=== PATIENT | female | born 1990 | race Caucasian/White ===

== ENCOUNTER 2021-03-25 16:01 | Observation (INO) | payer SELFPAY ==
[2021-03-25] VITALS (9 sets, daily range): BP systolic 103–113; BP diastolic 56–70; PULSE 86–123; TEMP 97.9–98.4
[~2021-03-25] VITALS: Ht 154.9 cm; Wt 52.3 kg
--- NOTE | 2021-03-25 13:50 | NUR ---
Pt arrives via stretcher from [facility] via EMS. States lower abdominal pain that began on 03/24/21. Pt was seen at [facility] and diagnosed with an ectopic . Changed into a clean gown. Type and screen obtained. NS infusing in 18g RAC. Admission assessmennt completed. Consents signed. Lacey Fernandes CRNA and Dr. Elizabeth at bedside. Discusses POC, and etiology of . Pt and spouse verbalize understanding and agree to POC.
--- NOTE | 2021-03-25 16:35 | NUR ---
Pt arrives to unit from PACU via bed. NC at 2L. Incision sites noted CDI. Pt alert x oriented x3. VSS. Updated on POC. Bed locked in low position. Call light within reach. SCDs on.
--- NOTE | 2021-03-25 18:40 | NUR ---
1840 ZOFRAN 4MG IVP FOR NAUSEA WITH GOOD RESULTS.
--- NOTE | 2021-03-25 19:30 | NUR ---
0 SAT ON SIDE OF BED. BECAME VERY DIZZY WHEN SITTING UP. LAY DOWN AND HOB DOWN. FEELING BETTER.
--- NOTE | 2021-03-25 21:00 | NUR ---
2100 UP TO BR WITH ASSIST AND VOIDED 100CC. VAG BLEEDING MINIMAL. MELISSA WELL. RETURNED TO BED. EMESIS 100CC. FEELING BETTER 2124 PERCOCET X1 PO WITH WATER AND CRACKERS TAKEN
[2021-03-26] VITALS: BP 96/57; PULSE 117; TEMP 98
--- NOTE | 2021-03-26 00:01 | NUR ---
0001 IV INFUSES AND TO INT. UP TO BR WITH ASSIST. SL DIZZY ON FIRST SITTING UP. MELISSA AMB WELL. RETURNED TO BED. NO NAUSEA AT THIS TIME.
[2021-03-26 04:00] VITALS: BP 91/58; PULSE 91; TEMP 98.3
[2021-03-26 08:00] VITALS: BP 96/56; PULSE 98; TEMP 98.4
[2021-03-26] MEDS ORDERED: MOTRIN 800800 MG/TAB PO (08:07)
[2021-03-26] MEDS ORDERED: PERCOCET 325 MG1 TA2 PO (08:07)
--- NOTE | 2021-03-26 10:17 | NUR ---
Initial visit; Patient and her thanked Energy Conservation Engineer for offering encouragement and God's blessings. Energy Conservation Engineer thanked family for choosing [facility].
[2021-03-26 12:19] VITALS: BP 92/52; PULSE 88; TEMP 98.4
--- NOTE | 2021-03-26 15:20 | NUR ---
1520- Pt ambulates in hallway independently with standby assist. Pt denies dizziness or light headedness. Pt verablizes being ready to go home. INT dc'd. to call friend that will give them a ride home.
== END 2021-03-26 17:20 | disposition home or self-care (01) ==
LOC: LDRO 16:01 → OB 16:02 → LDRO 03-26 09:22 → OB 03-26 09:23
PROVIDERS: ADMIT Obstetrics & Gynecology
DX: O00.101 Right tubal pregnancy without intrauterine pregnancy (principal); K66.1 Hemoperitoneum
CPT/HCPCS: OP; G0378; J1100; J1170; J1885; J2175; J2405; J2704; J2710; J2791; J3010; J7120

== ENCOUNTER 2021-11-09 09:36 | Emergency (ER) | payer SELFPAY ==
[~2021-11-09] VITALS: Ht 152.4 cm; Wt 54.5 kg
[~2021-11-09 09:36] MED LIST: MOTRIN 800800 MG/TAB PO; PERCOCET 325 MG1 TA2 PO
[2021-11-09 09:53] VITALS: TEMP 98.1
[2021-11-09 10:18] LABS: BASO % 0.1 % (0.0-2.0); EOS # 0.1 K/mm3 (0.0-0.7); EOS % 0.8 % (0.0-4.0); GRAN # 5.5 K/mm3 (1.4-6.5); GRAN % 72.1 % (42.2-75.2); LYMPH # 1.5 K/mm3 (1.2-3.4); LYMPH % 19.7 % (20.0-51.0); MEAN CELL VOLUME 90 fl (80.0-100.0); MEAN CORPUSCULAR HEMOGLOBIN 30 pg (27-31); MEAN CORPUSCULAR HGB CONC 33 g/dl (33.0-37.0); MEAN PLATELET VOLUME 9.8 fl (7.4-10.4); MONO # 0.5 K/mm3 (0.1-0.6); MONO % 6.8 % (1.7-9.3); PLATELET COUNT 191 K/mm3 (130-400); RED BLOOD COUNT 3.97 M/mm3 (4.10-5.30); REDCELL DISTRIBUTION WIDTH-CV 13.2 % (11.5-14.5)
[2021-11-09 10:21] LABS: HEMATOCRIT 35.9 % (37.0-47.0)
[2021-11-09 10:32] LABS: ALANINE AMINOTRANSFERASE 10 U/L (0-55); ALBUMIN 2.7 gm/dL (3.5-5.0); ALKALINE PHOSPHATASE 59 U/L (40-150); ANION GAP 12 mmol/L (7-16); AST,SGOT 13 U/L (5-34); BILIRUBIN,TOTAL 0.7 mg/dL (0.2-1.2); BLOOD UREA NITROGEN 6 mg/dL (7-19); CALCIUM 8.5 mg/dL (8.4-10.2); CARBON DIOXIDE 18 mmol/L (22-29); CHLORIDE 110 mmol/L (98-107); CREATININE, serum 0.59 mg/dL (0.57-1.11); GLUCOSE 81 mg/dL (70-99); POTASSIUM 3.6 mmol/L (3.5-4.5); SODIUM 140 mmol/L (136-145); TOTAL PROTEIN 6.6 gm/dL (6.2-8.1)
[2021-11-09 10:38] LABS: TROPONIN-I < 0.010 ng/mL (0.00-0.033)
[2021-11-09 11:07] LABS: COLLECTION METHOD CLEAN CATCH
[2021-11-09 11:28] LABS: PH 6 (5-8); URINE APPEARANCE Hazy (CLEAR/HAZY); URINE BACTERIA Occasional /hpf (NONE SEEN); URINE BILIRUBIN Negative (NEGATIVE); URINE BLOOD Negative (NEGATIVE); URINE COLOR Yellow (YELLOW); URINE GLUCOSE Negative (NEGATIVE); URINE KETONE 2+ (NEGATIVE); URINE LEUKOCYTE ESTERASE Trace (NEGATIVE); URINE NITRATE Negative (NEGATIVE); URINE PROTEIN(semi-quant) Negative (NEGATIVE); URINE RBC 0-2 /hpf (0-2); URINE UROBILINOGEN Negative (NEGATIVE)
[2021-11-09 12:45] VITALS: BP 108/71; PULSE 96
== END 2021-11-09 12:45 | disposition home or self-care (01) ==
LOC: COL.ER 09:36
PROVIDERS: Physician Assistant
DX: O26.892 Other specified pregnancy related conditions, second trimester (principal); R07.89 Other chest pain; Z3A.24 24 weeks gestation of pregnancy
CPT/HCPCS: J7030